=== PATIENT | female | born 1950 | race Two or more races ===

== ENCOUNTER 2024-06-11 10:36 | Emergency (ER) | payer OTHER ==
[~2024-06-11] VITALS: Ht 149.9 cm; Wt 68.0 kg
[2024-06-11] MEDS ORDERED: COZAAR50 MG PO (10:54)
[2024-06-11] MEDS ORDERED: CALCIUM500 M2 PO (10:54)
[2024-06-11 10:55] VITALS: BP 152/67; O2SAT 100
[2024-06-11 11:59] LABS: HEMATOCRIT 35.1 % (36.0-45.00); HEMOGLOBIN 11.9 g/dL (12.0-15.00); MEAN CELL VOLUME 93.1 fL (80.00-100.00); MEAN CORPUSCULAR HEMOGLOBIN 31.7 pg (27.00-32.0); PLATELET COUNT 250 K/uL (150-450); RED BLOOD COUNT 3.77 M/uL (4.00-6.00); RED CELL DISTRIBUTION WIDTH 12.9 % (11.5-14.5)
[2024-06-11 12:17] LABS: CALCIUM 9.2 mg/dL (8.5-10.1); CREATININE SERUM 0.78 mg/dL (0.55-1.02); POTASSIUM 3.69 mEq/L (3.5-5.1)
== END 2024-06-11 12:46 | disposition home or self-care (01) ==
LOC: ER 10:38
PROVIDERS: Emergency Medicine
DX: N95.0 Postmenopausal bleeding (principal); N81.4 Uterovaginal prolapse, unspecified; I10 Essential (primary) hypertension